=== PATIENT | female | born 1955 | race Caucasian/White ===

== ENCOUNTER → 2016-09-25 | Outpatient (CLI) | payer BC ==
[~2016-09-25] MED LIST: ACETAMINOPHEN PO; BACTRIM DS TABL1 TA1 PO; CALCIUM CITRAT1 EACH PO; CHOLECALCIFEROL PO; CLEOCIN150 M1 DOB; COLACE PO; CRESTOR5 MG PO; ELIQUIS5 MG PO; EVISTA60 M1 PO; EXCEDRIN EXTRA1 TAB PO; FISH OIL 1,0001 CA2 PO; FISH OIL 1,0001 CAP PO; FISH OIL 1,001000 M1 PO; HYDROCODON-ACE1 EAC5 PO; IRON PO; LYRICA50 MG PO; MULTIVITAMIN PO; NAPROXEN250 MG PO; PAMELOR75 MG PO; SIMVASTATIN10 MG PO; TRAMADOL HCL50 M2 PO; ZOCOR10 MG PO; [UNRECOGNIZED DRUG - OTHER] PO
--- NOTE | ~2016-09-25 | MY11 ---
[facility] A Service of [facility] [place] RADIOLOGY TEXT RESULTS PATIENT: MELY KING LOCATION: [facility] : 51 UNIT #: [id number] AGE: [address]: Jose Ibarra MD SEX: F ORDER DR: [id number] [facility] [address] [place], [place] [address] [id number] O MR#: [id number] #: [id number] NAME: MELY KING : 1955 SEX: F STUDY DATE/TIME: 09/25/2016 11:22 UNIT: [facility] ROOM: STUDY DESCRIPTION: MY Mammogram Screening Dig Toribio Attending Physician: Jose Ibarra M.D. Ordering Physician: Jose Ibarra M.D. Primary Care Physician: Jose Ibarra M.D. MEDICAL IMAGING REPORT This report is preliminary unless electronic signature is present EXAM Bilateral digital screening with CAD INDICATION Routine screening. No current complaints. No family history of breast cancer. COMPARISON 09/20/2015, 09/15/2014, 09/13/2013 FINDINGS MLO and CC digital views of each breast were obtained. The exam was reviewed with an FDA-approved CAD device. The breasts are dense. There are no masses or abnormal calcifications. IMPRESSION No change and no evidence of malignancy. Patients over the age of 40 are entered into a reminder system with target due date for the next mammogram. A result letter will also be sent to the patient. BIRADS: 1 Negative Dictated by... Franco Urias M.D. THIS IS AN ELECTRONICALLY VERIFIED REPORT Franco Urias M.D. at 09/25/2016 3:24 PM HOLLIE/erica TD: 09/25/2016 14:17 JOB #: [id number] [facility] A Service of [facility] [place] RADIOLOGY TEXT RESULTS PATIENT: MELY KING LOCATION: [facility] : 51 UNIT #: [id number] AGE: [address]: Jose Ibarra MD SEX: F ORDER DR: MEDICAL IMAGING REPORT COPY
== END | disposition home or self-care (01) ==
LOC: CWCC 10:41
DX: Z12.31 Encounter for screening mammogram for malignant neoplasm of breast (principal)
CPT/HCPCS: G0202